=== PATIENT | female | born 1965 | race Caucasian/White ===

== ENCOUNTER 2020-11-24 10:50 | Outpatient (CLI) | payer BC, SELFPAY ==
--- NOTE | ~2020-11-24 | CT_ITS ---
EXAMINATION: CT diagnostic chest w con DATE: 11/24/2020 11:42 INDICATION: R91.1 - Solitary pulmonary nodule TECHNIQUE: Computed tomography (CT) of the chest was performed without intravenous contrast. Addition al 3D reconstructions utilizing coronal maximum intensity projection (MIP) were performed. Automated exposure control and iterative reconstruction technique were employed. The dose-length product was 76 1.60 mGy-cm. COMPARISON: None FINDINGS: Mild upper lung predominant emphysema. The previously solid appearing 6 mm right upper lobe nodule no w demonstrates a spiculated subsolid appearance suggesting prior infectious/inflammatory etiology. Un changed mild linear atelectasis/scarring at the lingula and right lower lobe. No new or enlarging pul monary nodules, pneumonia, pulmonary edema or pleural effusion. Heart size is normal. No pericardial effusion. Thoracic aorta is normal in caliber with no dissection. No pathologically enlarged thoracic lymphadenopathy. Diffuse hepatic steatosis with focal sparing along the gallbladder fossa. No signif icant change in a 1.6 cm macroscopic fat attenuation right adrenal myelolipoma. Mild thoracic spondyl osis. IMPRESSION: 1. Near complete resolution of a prior 6 mm right upper lobe nodule consistent with an infectious/inf lammatory etiology. No new or enlarging pulmonary nodules. 2. Mild emphysema. Reviewed, dictated and finalized at location B. IMPRESSION: 1. Near complete resolution of a prior 6 mm right upper lobe nodule consistent with an infectious/inflammatory etiology. No new or enlarging pulmonary nodules . 2. Mild emphysema.
[2020-11-24 11:19] LABS: Estimated Glomerular Filt Rate > 60
== END 2020-11-24 10:51 ==
LOC: MICIMG 10:51
PROVIDERS: PCP Family Medicine; Visit Provider Family Medicine
DX: R91.1 Solitary pulmonary nodule (principal); J43.9 Emphysema, unspecified
CPT/HCPCS: 71260; Q9967

== ENCOUNTER 2022-02-12 09:27 | Emergency (ER) | payer BC, SELFPAY ==
--- NOTE | ~2022-02-12 | XR_ITS ---
EXAMINATION: XR foot RT min 3V DATE: 02/12/2022 10:52 INDICATION: Dorsal right foot pain, bruising and swelling post injury TECHNIQUE: Dorsoplantar, two oblique and lateral views of the right foot were obtained. COMPARISON: None. FINDINGS: Diffuse osteopenia which decreases sensitivity for nondisplaced fractures. An extra-articular fractur es across the proximal metaphyseal regions of the second-fourth metatarsals, nondisplaced at the seco nd metatarsal, negligibly displaced at the third metatarsal and a 2 mm lateral displacement at the fo urth metatarsal. No other fractures identified. Moderate osteoarthritis at the first metatarsophalang eal joint. Mild osteoarthritis at many of the remaining joints in the mid and forefoot. Small Milan s and plantar calcaneal spurs. Mild soft tissue swelling over the dorsum of the foot. IMPRESSION: 1. Non to minimally displaced extra articular fractures at the base of the second-fourth metatarsals. Reviewed, dictated and finalized at location A. RY WORKER IMPRESSION: 1. Non to minimally displaced extra articular fractures at the base of the seco nd-fourth metatarsals.
--- NOTE | ~2022-02-12 | XR_ITS ---
EXAMINATION: XR ankle RT min 3V DATE: 02/12/2022 10:52 INDICATION: Right ankle injury with generalized right ankle pain TECHNIQUE: Anteroposterior, oblique, mortise, and lateral views of the right ankle were obtained. COMPARISON: None. FINDINGS: Diffuse osteopenia. Partially visualized distal tip of an intramedullary sheri in the mid right tibial diaphysis. Negligible displacement of an oblique fracture of the distal right fibular metaphysis whic h exits the medial cortex at a couple millimeter above level of the tibiotalar joint line consistent with a Melissa type B injury pattern. Again noted are non to minimally displaced extra articular fractu re at the proximal metaphyses of the second-fourth metatarsals. Mild polyarticular osteoarthritis at the right ankle and multiple joints in the midfoot. Small Achilles and plantar calcaneal spurs. Soft tissue swelling about the lateral malleolus. IMPRESSION: 1. Nondisplaced Melissa type B oblique fracture of the distal right fibular metaphysis. 2. Non to minimally displaced fractures at the proximal metaphyses of the right second-fourth metatar sals. Reviewed, dictated and finalized at location A. ROUTE TRAFFIC CONTROLLER IMPRESSION: 1. Nondisplaced Melissa type B oblique fracture of the distal right fibular metap hysis. 2. Non to minimally displaced fractures at the proximal metaphyses of the right second-fourth metatarsals.
[2022-02-12 10:00] VITALS: BP 155/109; PULSE 70; RESP 20; TEMP 36.6; O2SAT 97
--- NOTE | 2022-02-12 10:35 | ED.LOWEXIN ---
HPI - Extremity Injury (Lower) General Chief Complaint: Extremity Injury, Lower Stated Complaint: right foot pain Time Seen by Provider: 02/12/22 09:41 Source: patient Mode of arrival: ambulatory Limitations: no limitations History of Present Illness HPI Narrative: This is a 56 year old female that presents to the ER for right foot injury sustained 4 days ago. Reports she was walking down an incline on a sidewalk. Reports rolled her foot. Since she has had bruising, swelling and pain. Reports pain with weight bearing, relieved with rest. Denies any other injuries. She did not hit her head or lose consciousness. Denies decreased ROM or numbness. Related Data Home Medications Medication Instructions Recorded Confirmed cetirizine 10 mg tablet (Zyrtec) 10 mg PO DAILY PRN 11/02/20 01/17/22 Allergies Allergy/AdvReac Type Severity Reaction Status Date / Time vancomycin Allergy Unknown Renal Verified 02/12/22 10:25 failure syndrome lisinopril AdvReac Mild COUGH Verified 02/12/22 10:25 Review of Systems Review of Systems: CONSTITUTIONAL: Denies fever CARDIOVASCULAR: Reports edema. SKIN: Denies rash MUSCULOSKELETAL: Reports joint pain, and myalgia. NEUROLOGIC: Denies numbness All systems reviewed & are unremarkable except as noted in HPI and below PMFSH Past Medical History Medical History Anxiety Arthritis of both knees Benign hypertension Cardiac arrhythmia Chronic pain of left knee Chronic vertigo Delayed postoperative wound closure Fatigue Fracture of right shoulder Hypertension Hypokalemia Hypomagnesemia Postoperative infection of knee (~11/2018) Vertigo Surgical History Surgical History Hx of cardiac cath Family History Family History Mother Hypertension Sibling Hypertension Other Family history of malignant neoplasm Social History Social History (Updated 01/17/22 @ 15:50 by Fe Verma CMA) Smoking status: Never smoker Second hand tobacco smoke exposure: No Smoking end date: 02/20/15 Alcohol intake: current Alcohol use details: seldom; socially Substance use: never Substance use type: does not use Lack of Transportation: No Lack of Food: Never True Current Housing: I Have Housing Concerned About Future Housing: No Difficulty Paying Gas/Electric Bills: No Difficulty Paying for Meds: No Currently Unemployed: No Education: High School Diploma/GED Difficulty w/ Childcare or Family Care: No Gender identity (if verbalized by the patient): Female Spiritual care concerns: No Agree to blood products: Yes Exam Narrative: GENERAL: Well-appearing, well-nourished, and in no acute distress. HEAD: Normocephalic, atraumatic. EYES: EOMI. EXTREMITIES: Normal range of motion. Mild to moderate edema and bruising to the dorsal surface of the right foot. Normal DP pulse. Normal sensation SKIN: Warm, dry, no rash. NEURO: No focal deficits. Alert and oriented x3. PSYCH: Normal mood and affect Course Course Emergency Course: Patient updated on imaging findings. She does report she has a orthopedic doctor that she sees over in [place] Vital Signs Vital signs: Vital Signs Temperature 97.8 F 02/12/22 10:00 Pulse Rate 70 02/12/22 10:00 Respiratory Rate 20 02/12/22 10:00 Blood Pressure 155/109 H 02/12/22 10:00 Pulse Oximetry 97 02/12/22 10:00 Oxygen Delivery Room Air 02/12/22 10:00 Temperature 97.8 F 02/12/22 10:00 Pulse Rate 70 02/12/22 11:38 Respiratory Rate 18 02/12/22 11:38 Blood Pressure 179/91 H 02/12/22 11:38 Pulse Oximetry 95 02/12/22 11:38 Oxygen Delivery Room Air 02/12/22 10:00 Procedures Orthopedic Splinting/Casting Injury #1: Splinting/Casting Date: 02/12/22 Splinting/Casting Time: 11:15 Side: rig
[2022-02-12 11:38] VITALS: BP 179/91; PULSE 70; RESP 18; O2SAT 95
[2022-02-12 12:03] VITALS: BP 174/89; PULSE 87; RESP 18; O2SAT 96
== END 2022-02-12 12:07 | disposition home or self-care (01) ==
PROVIDERS: Emergency Provider Physician Assistant; PCP Family Medicine
DX: S82.831A Other fracture of upper and lower end of right fibula, initial encounter for closed fracture (principal); S92.301A Fracture of unspecified metatarsal bone(s), right foot, initial encounter for closed fracture; I10 Essential (primary) hypertension; X50.0XXA Overexertion from strenuous movement or load, initial encounter
CPT/HCPCS: 29515; 73610; 73630; 99284

== ENCOUNTER → 2022-05-23 15:12 | Outpatient (CLI) | payer OTHER, SELFPAY ==
--- NOTE | ~2022-05-23 | XR_ITS ---
EXAMINATION: XR chest 2V Exam Date/Time: 05/23/2022 15:18 CDT HISTORY: COUGH SOB COVID POS 3-21 POSSIBLE PNA 3-29 F/U Comparison: 06/13/2018, CT chest 11/24/2020. RESULT: Lines, tubes, and devices: None. Lungs and pleura: Mild diffuse reticulonodular opacities and cuffing. No focal consolidation, pleura l effusion, or pneumothorax. Cardiomediastinal silhouette: Stable. Other: No acute osseous or upper abdominal finding. IMPRESSION: Pulmonary opacities may represent bronchiolitis, as can be seen with atypical infection, asthma, aspi ration, and small airways disease. Reviewed, dictated and finalized at location K. IMPRESSION: Pulmonary opacities may represent bronchiolitis, as can be seen with atypical i nfection, asthma, aspiration, and small airways disease.
== END ==
PROVIDERS: PCP Family Medicine; Visit Provider Physician Assistant Medical
DX: J18.9 Pneumonia, unspecified organism (principal)
CPT/HCPCS: 71046

== ENCOUNTER → 2022-08-12 08:10 | Outpatient (CLI) | payer OTHER, SELFPAY ==
--- NOTE | ~2022-08-12 | XR_ITS ---
Clinical Indication: Dyspnea PA and lateral views of the chest: Comparison: 05/23/2022 Findings: The lungs are clear, without evidence of focal consolidation or pleural effusion. Cardiome diastinal silhouette is stable. Bones and soft tissues are unremarkable. Impression: Clear lungs Reviewed, dictated and finalized at location . Impression: Clear lungs
== END ==
PROVIDERS: PCP Family Medicine; Visit Provider Physician Assistant Medical
DX: R06.00 Dyspnea, unspecified (principal)
CPT/HCPCS: 71046

== ENCOUNTER 2022-08-15 09:23 | Emergency (ER) | payer OTHER, SELFPAY ==
--- NOTE | ~2022-08-15 | CT_ITS ---
EXAMINATION: CT brain wo con DATE: 08/15/2022 09:53 INDICATION: Right-sided weakness and slurred speech TECHNIQUE: Computed tomography (CT) of the head was performed without intravenous contrast. Sagittal and coronal reconstructions were performed. The mA was adjusted according to patient size. Iterative reconstruction technique was employed. The dose-length product was 605.33 mGy-cm. COMPARISON: head CT dated 01/19/2011 FINDINGS: There is a small region of decreased attenuation in the left parieto-occipital region without associa clarita volume loss to suggest chronic encephalomalacia. In places as does appear to affect the loaiza magdaleno er which favors cytotoxic edema in the setting of acute or subacute infarct. No acute intracranial he morrhage or abnormal extra axial fluid collection. Ventricles are normal and symmetric. No mass/mass effect. Mucosal thickening in the paranasal sinuses with small amount of dependently layering mucus i n the left maxillary and right sphenoid sinuses. The orbits and mastoid air cells are normal. IMPRESSION: 1. Small region of decreased attenuation in the left parieto-occipital region suspicious for acute or subacute infarct. No evident intracranial hemorrhage. Dr. Fry discussed these findings with Dr. Alvarado at 9:54 AM. Reviewed, dictated and finalized at location A. IMPRESSION: 1. Small region of decreased attenuation in the left parieto-occipital region s uspicious for acute or subacute infarct. No evident intracranial hemorrhage. Dr Yohan Fry discussed these findings with Dr. Alvarado at 9:54 AM.
[2022-08-15 09:25] VITALS: BP 148/86; PULSE 69; RESP 18; TEMP 36.7; O2SAT 94
--- NOTE | 2022-08-15 09:42 | ECG_ITS ---
Measurements Intervals [place] Rate: 68 P: 24 MA: 207 QRS: 3 QRSD: 100 T: 19 QT: 399 QTc: 424 Interpretive Statements SINUS RHYTHM LOW QRS VOLTAGE IN PRECORDIAL LEADS [QRS DEFLECTION < 1.0 mV IN CHEST LEADS] NONSPECIFIC T-WAVE ABNORMALITY ABNORMAL ECG COMPARED TO ECG 06/14/2018 00:32:25 NO SIGNIFICANT CHANGES Electronically Signed On 08-15-2022 10:42:33 CDT by Porfirio Sauer M.D.
--- NOTE | 2022-08-15 09:43 | ED.GENADULT ---
HPI - General Adult General Chief complaint: Neuro Symptoms/Deficit Stated complaint: neuro symptoms Time Seen by Provider: 08/15/22 09:27 History of Present Illness HPI narrative: Patient is a 57-year-old female who presents ER with stroke symptoms. She called the paramedics herself. At 845 she began having tingling in her right hand but also developed difficulty speaking. She has slurred speech and difficulty finding her words. Patient reports she woke up at 5 AM and had no neurologic deficits and had been going on with her day without issue. No history of CVA previously. Patient has history of PVCs but no other arrhythmia. She is on no blood thinning medications. Patient is not mild distress due to anxiety about her symptoms. She has no other issues at this time. Related Data Home Medications Medication Instructions Recorded Confirmed cetirizine 10 mg tablet (Zyrtec) 10 mg PO DAILY PRN Allergy Symptoms 11/02/20 08/10/22 Allergies Allergy/AdvReac Type Severity Reaction Status Date / Time vancomycin Allergy Unknown Renal Verified 08/15/22 09:33 failure syndrome lisinopril AdvReac Mild COUGH Verified 08/15/22 09:33 Review of Systems Review of Systems: All systems reviewed & are unremarkable except as noted in HPI and below Constitutional: Constitutional: Denies chills and Denies fever(s) Eyes: Eyes: Denies blurry vision and Denies loss of vision Cardiovascular: Cardiovascular: Denies chest pain, Denies rapid heart rate and Denies radiating jaw, neck or arm pain Respiratory: Respiratory: Denies cough, Denies dyspnea and Denies wheezing Gastrointestinal: Gastrointestinal: Denies abdominal pain, Denies nausea and Denies vomiting Neurologic: Reports Abnormal speech present, Denies syncope, Denies headache(s), Denies focal weakness and Reports Sensory deficit (Neuro) [facility] Past Medical History Medical History Anxiety Arthritis of both knees Benign hypertension Cardiac arrhythmia Chronic pain of left knee Chronic vertigo Delayed postoperative wound closure Fatigue Fracture of right shoulder Hypertension Hypokalemia Hypomagnesemia Postoperative infection of knee (~11/2018) Vertigo Surgical History Surgical History Hx of cardiac cath Family History Family History Mother Hypertension Sibling Hypertension Other Family history of malignant neoplasm Social History Social History Smoking status: Never smoker Second hand tobacco smoke exposure: No Smoking end date: 02/20/15 Alcohol intake: current Alcohol use details: seldom; socially Substance use: never Substance use type: does not use Lack of Transportation: No Lack of Food: Never True Current Housing: I Have Housing Concerned About Future Housing: No Difficulty Paying Gas/Electric Bills: No Difficulty Paying for Meds: No Currently Unemployed: No Education: High School Diploma/GED Difficulty w/ Childcare or Family Care: No Living arrangements: with family Gender identity (if verbalized by the patient): Female Spiritual care concerns: No Agree to blood products: Yes Exam Narrative: GENERAL: Tearful-appearing, well-nourished, and in no acute distress. HEAD: Normocephalic, atraumatic. EYES: PERRL and EOMI. ENT: Mucous membranes moist. CHEST: Clear to auscultation. No respiratory distress. HEART: Regular rate and rhythm. Normal peripheral pulses. ABDOMEN: Soft, nontender, nondistended. EXTREMITIES: Normal range of motion. No edema. SKIN: Warm, dry, no rash. NEURO: Mild expressive aphasia. Very slight dysarthria. Normal upper and lower extremity strength without drift. Sensation intact. Denies visual field deficit. No facial asymmetry. See NIH stroke scale. Sujata
[2022-08-15 09:55] LABS: Basophils Absolute Auto 0.1 K/mm3 (0.0-0.1); Basophils Percent Auto 0.6 % (0.2-1.2); Eosinophils Absolute Auto 0.2 K/mm3 (0-0.3); Hematocrit 47.2 % (37.0-47.0); Hemoglobin 14.9 g/dL (12.0-15.0); Immature Granulocyte Absolute 0.06 K/mm3 (0.00-0.031); Immature Granulocyte Percent A 0.4 % (0-0.5); Lymphocytes Absolute Auto 3.36 K/mm3 (0.9-3.2); Lymphocytes Percent Auto 23.4 % (18.3-44.2); Mean Corpuscular HGB Conc 31.6 g/dl (32-36); Mean Corpuscular Hemoglobin 29.9 pg (26-34); Mean Corpuscular Volume 94.8 fl (80-100); Mean Platelet Volume 9.5 fl (7.4-10.4); Monocytes Absolute Auto 0.8 K/mm3 (0.1-0.6); Monocytes Percent Auto 5.4 % (2.6-8.5); Neutrophils Percent Auto 69.2 % (45.5-73.1); Platelet Count Result 416 k/mm3 (150-375); Red Blood Count 4.98 M/mm3 (4.2-5.4); Red Cell Distribution Width 14.5 % (11.5-14.5); White Blood Count 14.4 K/mm3 (4.5-10.0)
[2022-08-15 10:02] LABS: Glucose Point of Care 126 mg/dl (65-105)
[2022-08-15 10:04] LABS: Alanine Aminotransferase 50 U/L (6-35); Albumin Level 4.6 g/dL (3.5-5.1); Alkaline Phosphatase 93 U/L (38-126); Anion Gap 7 mmol/L (8-16); Aspartate Amino Transferase 32 U/L (14-36); Bilirubin,Total 0.7 mg/dL (0.2-1.3); Blood Urea Nitrogen 17 mg/dL (7-17); Calcium 9.3 mg/dL (8.4-10.2); Carbon Dioxide 30 mmol/L (22-30); Chloride 104 mmol/L (98-107); Estimated CRCL calculation 86 ml/min; Estimated Glomerular Filt Rate > 60; Glucose 122 mg/dL (65-110); Potassium 3.7 mmol/L (3.4-5.0); Sodium 141 mmol/L (137-145)
[2022-08-15 10:05] LABS: Prothrombin Time 13.1 Seconds (11.1-14.7)
[2022-08-15 10:06] LABS: Partial Thromboplastin Time 29.7 SECONDS (22.3-36.8)
[2022-08-15 10:08] VITALS: BP 138/86; PULSE 73; PULSE 74; RESP 16; O2SAT 95
[2022-08-15 10:16] LABS: Troponin I < 0.012 ng/mL (0.000-0.034)
--- NOTE | 2022-08-15 10:26 | PC.NURSE ---
[facility] lights and sirens to [facility] ETA 15min Trip # [id number]
[2022-08-15 10:36] VITALS: PULSE 71; RESP 14; O2SAT 93
[2022-08-15 10:46] VITALS: BP 144/75; PULSE 73; RESP 11; O2SAT 94
== END 2022-08-15 11:07 | disposition short-term general hospital (02) ==
PROVIDERS: Emergency Provider Emergency Medicine; PCP Family Medicine
DX: I63.89 Other cerebral infarction (principal); I10 Essential (primary) hypertension
CPT/HCPCS: 36415; 37195; 70450; 80053; 82948; 84484; 85025; 85610; 85730; 93005; 99285; J2997

== ENCOUNTER → 2023-02-14 15:21 | Outpatient (CLI) | payer OTHER, SELFPAY ==
--- NOTE | ~2023-02-14 | MM_ITS ---
EXAMINATION: MM screening jailene BI w tl HISTORY: Screening mammogram TECHNIQUE: Craniocaudal and mediolateral oblique 3-D tomosynthesis images were obtained and synthetic 2-D images were generated. CAD analysis was submitted and interpreted. COMPARISON: 07/31/2017 bilateral screening mammogram BREAST PARENCHYMAL COMPOSITION: There are scattered areas of fibroglandular density. FINDINGS: Occasional stable low-density circumscribed opacities. There is a biopsy marker on the righ t; history of prior benign right breast biopsy. There is no evidence of suspicious mass, calcificatio n, or architectural distortion to suggest malignancy in either breast. There has been no suspicious i nterval change. IMPRESSION: 1. Benign findings. No mammographic evidence of malignancy. 2. Recommend routine screening mammography in one year. BI-RADS Category 2: Benign finding(s). Reviewed, dictated and finalized at location A. MENT WOUND PARTS FABRICATOR
== END ==
PROVIDERS: PCP Physician Assistant; Visit Provider Physician Assistant
DX: Z12.31 Encounter for screening mammogram for malignant neoplasm of breast (principal)
CPT/HCPCS: 77063; 77067

== ENCOUNTER 2023-04-20 15:44 | Outpatient (CLI) | payer OTHER, SELFPAY ==
--- NOTE | ~2023-04-20 | XR_ITS ---
Clinical Indication: Dyspnea PA and lateral views of the chest: Comparison: 08/12/2022 Findings: The lungs are clear, without evidence of focal consolidation or pleural effusion. Cardiome diastinal silhouette is within normal limits. Bones and soft tissues are unremarkable. Impression: Normal chest. Reviewed, dictated and finalized at [facility]. SHOVER Impression: Normal chest.
== END 2023-04-20 15:45 ==
LOC: MICIMG 15:45
PROVIDERS: PCP Physician Assistant Medical; Visit Provider Physician Assistant Medical
DX: R06.00 Dyspnea, unspecified (principal)
CPT/HCPCS: 71046

== ENCOUNTER 2023-04-26 08:05 | Outpatient (CLI) | payer OTHER, SELFPAY ==
--- NOTE | 2023-04-26 17:37 | P.PCNPFT_ITS ---
PFT Procedure Performed PFT Procedure Performed Spirometry with Pre/Post Bronchodilator Plethysmography (Lung Vol) Diffusing Cap (DLCO) Flow Vol Loop PFT Interpretation This is a pulmonary function test with pre and post-bronchodilator spirometry, plethysmography and diffusing capacity. The test was performed and results interpreted in accordance with the 2019 and 2005 ATS/ERS Task Force guidelines respectively using the Global Lung Function Initiative-2012 reference equations. Patient demonstrated good effort and cooperation. Reproducibility criteria were met. The quality of the pre bronchodilator spirometry maneuver was Grade A and post bronchodilator spirometry maneuver was Grade A. Findings: Spirometry: There is decreased maximal expiratory airflow at low lung volumes. The contour the inspiratory flow tracing is normal. The pre bronchodilator FVC is 2.60 L, 89% predicted. The pre bronchodilator FEV1 is 1.79 L, 77% predicted. The pre bronchodilator FEV1: FVC ratio 69%. The post bronchodilator FVC is 2.80 L, representing an 8% increase. The post bronchodilator FEV1 is 1.91 L, re presenting a 7% increase. The post bronchodilator FEV1: FVC ratio 68%. Plethysmography: The total lung capacity is 5.45 L, 115% predicted. The functional residual capacity is 2.54 L, 96% predicted. The residual volume is 2.51 L, 134% predicted. The diffusing capacity: The diffusing capacity unadjusted for hemoglobin and carboxyhemoglobin is 18.3, 88% predicted. The diffusing capacity adjusted for alveolar volume is 4.53, 100% predicted. Impression: There is a mild obstructive abnormality. There is no significant improvement after inhaling a single dose of albuterol. The lung volumes are normal. The diffusing capacity is normal.
== END 2023-04-26 08:06 | disposition home or self-care (01) ==
PROVIDERS: PCP Physician Assistant Medical; Visit Provider Physician Assistant Medical
DX: R06.00 Dyspnea, unspecified (principal)
CPT/HCPCS: 94060; 94726; 94729

== ENCOUNTER 2023-12-11 09:40 | Outpatient (CLI) | payer OTHER, SELFPAY ==
--- NOTE | 2023-12-11 09:47 | ECHO_ITS ---
Patient Info Name: Lyndsay Humphrey Age: 58 years : 1965 Gender: Female Ht: 63 in Wt: 237 lbs BSA: 2.24 m2 HR: 65 bpm BP: 132 / 78 mmHg Heart Rhythm: Sinus Rhythm Technical Quality: Good Exam Date: 12/11/2023 10:02 AM Exam Location: Echo Lab Patient Status: Outpatient Admit Date: 12/11/2023 Staff Ordering Physician: Oz Grijalva DO Bi Data Architect: Krisytn Baptiste RDCS Attending Provider: Oz Grijalva DO Referring Physician: Rudi KRAMER; Exam Type: CA echo doppler color flow Study Info Indications - other forms of dyspnea Complete two-dimensional, color flow and Doppler transthoracic echocardiogram is performed. Summary 1. Complete two-dimensional, color flow and Doppler transthoracic echocardiogram is performed. 2. Left ventricular chamber dimension is normal. 3. Left ventricular systolic function is normal, estimated at 60-65%. 4. There is mild concentric increased left ventricular wall thickness. 5. The left ventricular diastolic function is grade I diastolic dysfunction. 6. E/e' 7 is not elevated. 7. Left atrial chamber dimension is mildly enlarged. 8. There is trace mitral valve regurgitation. 9. There is trace tricuspid valve regurgitation. 10. No pulmonary hypertension, estimated pulmonary arterial systolic pressure is 15 mmHg. Left Ventricle E/e' 7 is not elevated. Left ventricular chamber dimension is normal. Left ventricular systolic function is normal, estimated at 60-65%. There is mild concentric increased left ventricular wall thickness. The left ventricular diastolic function is grade I diastolic dysfunction. Right Ventricle Right ventricular systolic function is normal and with normal TAPSE 2.6 cm. Right ventricular chamber dimension is normal. Left Atria Left atrial chamber dimension is mildly enlarged. Right Atria Right atrial chamber dimension is normal. Aortic Valve The aortic valve is trileaflet. There is no aortic valve stenosis. There is no aortic valve regurgitation. Pulmonic Valve There is no pulmonic regurgitation. Mitral Valve There is no mitral valve stenosis. There is trace mitral valve regurgitation. Tricuspid Valve There is trace tricuspid valve regurgitation. No pulmonary hypertension, estimated pulmonary arterial systolic pressure is 15 mmHg. Pericardium/Pleural There is no pericardial effusion. Inferior Vena Cava Normal inferior vena cava with >50% collapse upon inspiration consistent with normal right atrial pressure, 5 mmHg. Aorta The aortic root size at the sinus of Valsalva is normal. Left Ventricular Outflow Tract Name Value Normal LVOT 2D LVOT Diameter 1.9 cm LVOT Doppler LVOT Peak Gradient 6 mmHg LVOT Mean Gradient 3 mmHg LVOT VTI 26 cm LVOT VTI/AV VTI Ratio 0.8 LVOT Stroke Volume 74 ml LVOT CO 4.1 l/min LVOT CI 1.8 l/min/m2 Pulmonic Valve Name Value Normal
== END 2023-12-11 09:41 | disposition home or self-care (01) ==
LOC: ANHCARD 09:41
PROVIDERS: PCP Family Medicine; Visit Provider Internal Medicine Cardiovascular Disease
DX: R06.09 Other forms of dyspnea (principal)
CPT/HCPCS: 93306

== ENCOUNTER 2024-02-23 10:59 | Outpatient (CLI) | payer OTHER, SELFPAY ==
[2024-02-23 12:01] LABS: Influenza A QL RT-PCR Negative (Negative); Influenza B QL RT-PCR Negative (Negative); RSV RNA, RT-PCR Positive (Negative); SARS-CoV-2 RNA PCR Negative (Negative)
== END 2024-02-23 11:00 | disposition home or self-care (01) ==
LOC: ANHLAB 11:01
PROVIDERS: PCP Family Medicine; Visit Provider Family Medicine
DX: J06.9 Acute upper respiratory infection, unspecified (principal)
CPT/HCPCS: 87637